=== PATIENT | female | born 1950 | race Caucasian/White ===

== ENCOUNTER 2025-05-20 11:51 | Inpatient (IN) | payer OTHER, MEDICAID ==
[2025-05-20 12:34] LABS: Actual Bicarbonate (HCO3v) 29.3 mEq/L (22-28); Analyzer IN Cardio ER; Base Excess 2.3 mEq/L (-2.0 to +3.0); Calcium, Ionized (venous) 1.16 mmol/L (1.16-1.32); Chloride (VBG) 104 mmol/L (98-106); Hematocrit-VBG 31 % (36.0-47.0); Hemoglobin (Hb) 10.6 g/dL (11.7-16.1); Potassium (VBG) 3.30 mmol/L (3.70-5.30); Sodium 143 mmol/L (133-146)
[2025-05-20 12:42] LABS: #Basophils 0.05 10x3/uL (0.0-0.2); #Eosinophils 0.41 10x3/uL (0.0-0.7); #Monocytes 1.00 10x3/uL (0.11-0.59); #Neutrophils 8.80 10x3/uL (1.40-6.50); %Basophils 0.4 % (0.0-1.0); %Eosinophils 3.7 % (0.0-10.0); %Lymphocytes 7.3 % (21.0-51.0); %Monocytes 9.0 % (0.0-10.0); %Neutrophils 79.2 % (42.0-75.0); Hematocrit 30.5 % (36.0-47.0); Hemoglobin 9.1 g/dL (12.0-16.0); Mean Corpuscular Hemoglobin 26.6 pg (27.0-31.0); Mean Corpuscular Volume 89.2 fL (78.0-98.0); Platelet Count 266 10x3/uL (130-400); Red Blood Cell (RBC) Count 3.42 mill/uL (4.20-5.40); White Blood Cell (WBC) Count 11.12 10x3/uL (4.8-10.8)
[2025-05-20] MEDS ORDERED: Cefepime 2 GM VIAL ONE (12:51)
[2025-05-20 13:05] LABS: INR-International Normal Ratio 1.1; PTT 32.3 sec (22.9-36.1); Prothrombin Time 14.7 sec (12.0-14.7)
[2025-05-20 13:11] LABS: ALT (SGPT) Less than 7 U/L (Less than 34); AST (SGOT) 12 U/L (11-34); Acetaminophen Less than 10 mcg/mL (Less than 10); Albumin 2.6 g/dL (3.1-4.5); Alkaline Phosphatase 78 U/L (40-110); Anion Gap 11 mmol/L (10-20); BUN (Urea Nitrogen) 9 mg/dL (9.8-20.1); Bilirubin, Total 0.4 mg/dL (0.3-1.2); CK (CPK) 66 U/L (29-168); Calc. Creatinine Clearance 0 mL/min (70-130); Calcium 8.6 mg/dL (7.8-10.44); Carbon Dioxide 28 mmol/L (23-31); Chloride 106 mmol/L (98-107); Globulin 3.5 g/dL (2.4-3.5); Glucose 88 mg/dL (83-110); Potassium 3.2 mmol/L (3.5-5.1); Salicylate Less than 8.0 mg/dL (Less than 8.0); Sodium 142 mmol/L (136-145)
[2025-05-20 14:18] LABS: Cocaine Metabolite Screen Negative (Negative); THC/Cannabinoid Screen Negative (Negative); Tricyclic Screen PRELIM POSITIVE (Negative)
[2025-05-20 14:19] LABS: Bacteria/HPF None Seen HPF (None Seen); CAUTI Indications for Culture Alt mental st,lethar; Glucose, Urine (Dipstick) Normal (Negative); Leukocyte Negative Leu/uL (Negative); Protein, Urine (Dipstick) Negative (Neg-Trace); RBC/HPF 0-3 HPF (0-3); Specific Gravity, Urine 1.013 (1.002-1.036); WBC/HPF 0-3 HPF (0-3)
[2025-05-20 14:22] LABS: Urine Culture Reflex No No
[2025-05-20] MEDS ORDERED: Melatonin 3 MG TAB PO PRN (16:35)
[2025-05-20] MEDS ORDERED: Acetaminophen 325 MG TAB PO PRN (16:35)
[2025-05-20] MEDS ORDERED: Ondansetron PF 4 MG/2 ML Vial IVP PRN (16:35)
[2025-05-20] MEDS ORDERED: Electrolyte Replacement Protocol 1 EACH FS PRN (16:45)
[2025-05-20] MEDS: Vancomycin 1.5 GM / NS 500ML VIAL-2-BAG IVPB SCH (20:46)
[2025-05-20] MEDS ORDERED: Vancomycin 1 GM in Premix 1 BAG IVPB SCH (21:00)
[2025-05-20 22:18] VITALS: BMI 26.1
[2025-05-21 05:46] LABS: Vancomycin, Random 32.9 ug/mL (See Comment)
[2025-05-21 05:47] LABS: #Basophils 0.07 10x3/uL (0.0-0.2); #Eosinophils 0.76 10x3/uL (0.0-0.7); #Monocytes 0.79 10x3/uL (0.11-0.59); #Neutrophils 7.11 10x3/uL (1.40-6.50); %Basophils 0.7 % (0.0-1.0); %Eosinophils 8.0 % (0.0-10.0); %Lymphocytes 7.4 % (21.0-51.0); %Monocytes 8.3 % (0.0-10.0); %Neutrophils 75.1 % (42.0-75.0); Anion Gap 10 mmol/L (10-20); BUN (Urea Nitrogen) 7 mg/dL (9.8-20.1); Calc. Creatinine Clearance 93 mL/min (70-130); Calcium 8.7 mg/dL (7.8-10.44); Carbon Dioxide 27 mmol/L (23-31); Chloride 106 mmol/L (98-107); Glucose 91 mg/dL (83-110); Hematocrit 33.3 % (36.0-47.0); Hemoglobin 9.6 g/dL (12.0-16.0); Mean Corpuscular Hemoglobin 25.9 pg (27.0-31.0); Mean Corpuscular Volume 90.0 fL (78.0-98.0); Platelet Count 281 10x3/uL (130-400); Potassium 3.4 mmol/L (3.5-5.1); Red Blood Cell (RBC) Count 3.70 mill/uL (4.20-5.40); Sodium 140 mmol/L (136-145); White Blood Cell (WBC) Count 9.48 10x3/uL (4.8-10.8)
[2025-05-21] MEDS: Enoxaparin 40 MG (0.4 mL) SYRINGE SC SCH (08:10)
[2025-05-21] MEDS ORDERED: Pantoprazole 40 MG DR.TAB PO SCH (13:47)
[2025-05-21] MEDS: Pantoprazole 40 MG DR.TAB PO SCH (14:47)
[2025-05-21] MEDS: Vancomycin HCl 1.25 GM in Sodium Chloride 0.9% 250 ML 250 ML IVPB SCH (14:47)
[2025-05-22 05:06] LABS: #Basophils 0.05 10x3/uL (0.0-0.2); #Eosinophils 0.65 10x3/uL (0.0-0.7); #Monocytes 0.63 10x3/uL (0.11-0.59); #Neutrophils 4.39 10x3/uL (1.40-6.50); %Basophils 0.8 % (0.0-1.0); %Eosinophils 10.0 % (0.0-10.0); %Lymphocytes 11.3 % (21.0-51.0); %Monocytes 9.7 % (0.0-10.0); %Neutrophils 67.7 % (42.0-75.0); Hematocrit 29.8 % (36.0-47.0); Hemoglobin 9.2 g/dL (12.0-16.0); Mean Corpuscular Hemoglobin 26.4 pg (27.0-31.0); Mean Corpuscular Volume 85.6 fL (78.0-98.0); Platelet Count 274 10x3/uL (130-400); Red Blood Cell (RBC) Count 3.48 mill/uL (4.20-5.40); White Blood Cell (WBC) Count 6.48 10x3/uL (4.8-10.8)
[2025-05-22 05:21] LABS: Vancomycin, Random 18.6 ug/mL (See Comment)
[2025-05-22 05:23] LABS: Anion Gap 10 mmol/L (10-20); BUN (Urea Nitrogen) 5 mg/dL (9.8-20.1); Calc. Creatinine Clearance 106 mL/min (70-130); Calcium 8.2 mg/dL (7.8-10.44); Carbon Dioxide 25 mmol/L (23-31); Chloride 109 mmol/L (98-107); Glucose 78 mg/dL (83-110); Magnesium 1.2 mg/dL (1.6-2.6); Potassium 3.1 mmol/L (3.5-5.1); Sodium 141 mmol/L (136-145)
[2025-05-22] MEDS: Magnesium Sulfate 4 GM / 100ML WATER Premix IVPB SCH (06:26)
[2025-05-22] MEDS: Pantoprazole 40 MG DR.TAB PO SCH (08:33)
[2025-05-22] MEDS: Vancomycin HCl 750 MG in Sodium Chloride 0.9% 250 ML 250 ML IVPB SCH (13:26)
[2025-05-22 15:53] VITALS: BP 145/74; TEMP 98.6
== END 2025-05-22 18:05 | disposition home or self-care (01) | DRG 312 ==
LOC: ERS 11:51 → ERHOLD 15:24 → 2NO 20:03
PROVIDERS: ADMIT Internal Medicine; ATTEND Student in an Organized Health Care Education/Training Program
DX: I95.2 Hypotension due to drugs (principal); J18.9 Pneumonia, unspecified organism; J44.0 Chronic obstructive pulmonary disease with (acute) lower respiratory infection; E03.9 Hypothyroidism, unspecified; K21.9 Gastro-esophageal reflux disease without esophagitis; G47.00 Insomnia, unspecified; G89.29 Other chronic pain; G35 Multiple sclerosis; T40.605A Adverse effect of unspecified narcotics, initial encounter; R19.7 Diarrhea, unspecified; Z79.890 Hormone replacement therapy; Z79.899 Other long term (current) drug therapy; Z99.3 Dependence on wheelchair; Z99.81 Dependence on supplemental oxygen; Z91.81 History of falling; Z88.1 Allergy status to other antibiotic agents; Z90.49 Acquired absence of other specified parts of digestive tract; Z98.891 History of uterine scar from previous surgery; Z98.890 Other specified postprocedural states
CPT/HCPCS: 36415; 51701; 70450; 71045; 72125; 80048; 80053; 80202; 80306; 80307; 81001; 82550; 82805; 83605; 83735; 83880; 84443; 84484; 85025; 85610; 85730; 87040; 87081; 93005; 96365; 96366; 96367; 96375; J0692; J1650; J2310; J3373; J3475; J7030; J7050